=== PATIENT | male | born 1995 | race Caucasian/White ===

== ENCOUNTER 2016-09-27 08:00 | Outpatient (CLI) | payer OTHER ==
[~2016-09-27] VITALS: Ht 185.4 cm; Wt 88.5 kg
[~2016-09-27 08:00] MED LIST: BENT20TA PO; OMEP20CA3 PO
[2016-09-27] MEDS ORDERED: NS 1,000 ML IV ONE (08:15)
[2016-09-27] MEDS ORDERED: LIDOCAINE 2% INJ 100 MG/5 ML SDV (FOR ANES.) As Ordered ONE (09:03)
[2016-09-27] MEDS ORDERED: PROPOFOL 200 MG/20 ML VIAL As Ordered ONE ×2 (09:03→09:09)
--- NOTE | 2016-09-27 09:21 | ROOR ---
Patient Name: Anthony Fung Procedure Date: 09/27/2016 8:59 AM Date of : 1995 Age: 20 Room: [facility] Gender: Male Note Status: Finalized Procedure: Upper Endoscopy + Biopsies Indications: Heartburn, Coffee-ground emesis, Hematemesis Providers: Jac Benito MD Referring MD: SHAILESH CASH MD Requesting Provider: Medicines: Monitored Anesthesia Care Complications: No immediate complications. Procedure: Pre-Anesthesia Assessment: - The heart rate, respiratory rate, oxygen saturations, blood pressure, adequacy of pulmonary ventilation, and response to care were monitored throughout the procedure. The Endoscope was introduced through the mouth, and advanced to the second part of duodenum. The upper GI endoscopy was accomplished without difficulty. The patient tolerated the procedure well. Findings: The Z-line was irregular and was found 45 cm from the incisors. Multiple biopsies were obtained with cold forceps for histology randomly at the gastroesophageal junction. Non-severe esophagitis with no bleeding, and superficial ulcerations was found 45 cm from the incisors. Biopsies were taken with a cold forceps for histology. A small hiatal hernia was present. The exam of the stomach was otherwise normal. The exam of the duodenum was otherwise normal. Impression: - Z-line irregular, 45 cm from the incisors. - Non-severe reflux esophagitis. Biopsied. - Small hiatal hernia. - Multiple biopsies were obtained at the gastroesophageal junction. - The examination was otherwise normal. Recommendation: - Await pathology results. - Discharge patient to home. - Follow an antireflux regimen. - Use Prilosec (omeprazole) 40 mg PO daily. - Await pathology results. - Telephone GI clinic for pathology results in 1 week. - Return to referring physician. - The findings and recommendations were discussed with the patient's family. Jac Benito MD Jac Benito MD 09/27/2016 9:21:41 AM This report has been signed electronically. Number of Addenda: 0 Note Initiated On: 09/27/2016 8:59 AM Estimated Blood Loss: Estimated blood loss: none.
[2016-09-27 09:35] VITALS: BP 127/78
== END 2016-09-27 09:54 ==
LOC: M OPP 08:00
PROVIDERS: ATTEND Internal Medicine Gastroenterology
DX: R12 Heartburn (principal); K92.0 Hematemesis; K22.8 Other specified diseases of esophagus; K21.0 Gastro-esophageal reflux disease with esophagitis; K44.9 Diaphragmatic hernia without obstruction or gangrene; Z79.899 Other long term (current) drug therapy

== ENCOUNTER 2018-06-19 17:42 | Emergency (ER) | payer OTHER ==
[~2018-06-19] VITALS: Ht 185.4 cm; Wt 98.5 kg
--- NOTE | 2018-06-19 19:36 | REPVR ---
EXAM: CT Chest Without Contrast EXAM DATE/TIME: 06/19/2018 6:49 PM CLINICAL HISTORY: 22 years old, male; Injury or trauma; Fall; Initial encounter; Blunt trauma (contusions or hematomas); Additional info: Blunt force to sternum TECHNIQUE: Imaging protocol: Axial computed tomography images of the chest without intravenous contrast. Coronal and sagittal reformatted images were created and reviewed. 3D rendering: MIP reconstructed images were created and reviewed. Radiation optimization: All CT scans at this facility use at least one of these dose optimization techniques: automated exposure control; mA and/or kV adjustment per patient size (includes targeted exams where dose is matched to clinical indication); or iterative reconstruction. COMPARISON: No relevant prior studies available. FINDINGS: Lungs: 3 mm nodule in the anterior segment right upper lobe (series 201 image 55). Pleural space: Normal. No pneumothorax. No pleural effusion. Heart: Normal. No cardiomegaly. No pericardial effusion. Aorta: Normal. No aortic aneurysm. Lymph nodes: Unremarkable. No enlarged lymph nodes. Bones/joints: Unremarkable. No acute fracture. Soft tissues: Unremarkable. IMPRESSION: 1. No acute findings. 2. 3 mm nodule in the right upper lobe.If patient does not have known cancer, follow up should be based on clinical information because of the low risk of cancer in this age group. (Emmy et al., Fleischner Society, 2017) Electronically signed by: Janette Pickering On 06/19/2018 19:36:08 PM
[2018-06-19] MEDS ORDERED: METAL LOCK LOOP XX ONE (19:39)
[2018-06-19 20:50] VITALS: BP 119/70
== END 2018-06-19 20:52 | disposition home or self-care (01) ==
LOC: M ED 17:42
DX: R91.8 Other nonspecific abnormal finding of lung field (principal); R07.89 Other chest pain; R06.02 Shortness of breath; K44.9 Diaphragmatic hernia without obstruction or gangrene; Z79.899 Other long term (current) drug therapy